=== PATIENT | male | born 1985 | race African-American/Black ===

== ENCOUNTER 2021-07-13 16:05 | Emergency (ER) | payer OTHER ==
[~2021-07-13] VITALS: Ht 185.4 cm; Wt 86.2 kg
[2021-07-13 16:05] VITALS: BP 152/92
== END 2021-07-13 16:38 ==
LOC: ER 16:11
DX: S05.8X2A Other injuries of left eye and orbit, initial encounter (principal); Y08.89XA Assault by other specified means, initial encounter; Y93.89 Activity, other specified; Y92.89 Other specified places as the place of occurrence of the external cause; Y99.8 Other external cause status